=== PATIENT | female | born 2000 | race Caucasian/White ===

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

== ENCOUNTER 2018-05-08 18:59 | Inpatient (IN) | payer MEDICAID ==
[~2018-05-08] VITALS: Ht 152.4 cm; Wt 53.3 kg
[~2018-05-08 18:59] MED LIST: ACET325T33 PO; ACET500C5 PO; DICY10CA40 PO; DOCU-144 PO; FAMO-96 PO; HYDR-4011 PO; IBUP-1542 PO; IBUP-1561 PO; NITR-58 PO; ONDA4TAB14 PO; PENI500T PO; POLY17PO6 PO; RANI150T35 PO
[2018-05-08 19:21] VITALS: BP 119/63; PULSE 55; RESP 18
[2018-05-08 20:22] VITALS: Ht 152.4 cm; Wt 53.3 kg
[2018-05-08] MEDS ORDERED: LACTATED RINGER'S 1,000 ML IV SCH (20:30)
[2018-05-08] MEDS ORDERED: ACETAMINOPHEN 1000MG/100ML IV 100 ML IVPB ONE (20:30)
[2018-05-08] MEDS ORDERED: LACTATED RINGER'S 1,000 ML IV ONE (20:30)
[2018-05-08] MEDS ORDERED: TERBUTALINE 1 MG/ML INJ SC ONE ×2 (22:00→23:00)
[2018-05-08] MEDS ORDERED: SOD CHLORIDE 0.9% 1,000 ML IV SCH (22:00)
[2018-05-08] MEDS ORDERED: CEFTRIAXONE 1 GM INJ IVPB ONE (22:00)
[2018-05-08] MEDS ORDERED: CEFTRIAXONE 1 GM/50 ML (PMX) 50 ML IVPB ONE (22:00)
[2018-05-08] MEDS ORDERED: ACETAMINOPHEN 500 MG TAB PO STA (22:56)
[2018-05-08] MEDS: SOD CHLORIDE 0.9% 1,000 ML IV SCH (23:30)
--- NOTE | 2018-05-09 02:15 | TRIAGE ---
OB Triage Datetime Report Generated by CPN: 05/09/2018 02:14 Datetime: 05/09/2018 02:06 Monitor Mode: External Comments: US monitor removed, monitoring only Qshift NST Datetime: 05/09/2018 01:53 Resting Tone [place]: Relaxed Contraction Comments: maternal repositioning, TOCO tracing movement not contraction Datetime: 05/09/2018 01:30 Labor Evaluation Frequency: X4/HR Monitor Mode: External Duration (sec)2399: 40-80 Quality: Mild Resting Tone [place]: Relaxed Interventions: Side to Side Contraction Comments: Lots of uterine irritability noted Heart Rate FHR Baseline Rate: 120 Monitor Mode: External US Variability: Moderate 6-25 bpm Accelerations: 15X15 Decelerations: Variable Category: Category II Comments: [id number] NOTED, APPROPRIATE FOR GA Pain Assessment Pain Scale: 9 Pain Presence: Intermittent Pain Type: Cramping; Ache Pain Location: Abdomen; Right Flank Pain Relief Measures: Comfort Measures Pain Assessment Comments: pt still states her lower abdomen pain has not decreased Datetime: 05/09/2018 00:30 Labor Evaluation Frequency: OCCASIONAL Monitor Mode: External Duration (sec)2399: 40-50 Quality: Mild Pattern: Normal: <= 5 Contractions in 10 Minutes Resting Tone [place]: Relaxed Contraction Comments: OCCASIONAL CONTRACTIONS, MOSTLY UTERINE IRRIABILITY Heart Rate FHR Baseline Rate: 120 Monitor Mode: External US Variability: Moderate 6-25 bpm Accelerations: 15X15 Decelerations: None Category: Category I Comments: CAT I tracing, reactive NST Pain Assessment Pain Scale: 10 Pain Presence: Intermittent Pain Type: Contraction Pain Location: Abdomen Pain Relief Measures: Comfort Measures Datetime: 05/09/2018 00:05 Vaginal Exam Dilatation (cms): 0.0 Effacement (%): 0 Station: -4 Exam By: MVALENTINA RN Datetime: 05/08/2018 23:57 Time of Arrival: 05/08/2018 23:25 EGA: 32.4 Datetime: 05/08/2018 23:48 Monitor Mode: External Datetime: 05/08/2018 23:33 Assessment Type: Admission Assessment Maternal Assessment Level of Consciousness: Fully Conscious DTR's/Clonus: DTRs 2+; No Clonus Headache: Denies Blurred Vision: No Respiratory Effort: Unlabored; Regular Rhythm; Equal Expansion Breath Sounds, Left: Clear and Equal Breath Sounds, Right: Clear and Equal Nausea/Vomiting: Denies RUQ Epigastric Pain: Denies Lower Extremities Edema: None Degree: None Upper Extremities Edema: None Degree: None Facial Edema: None Temperature Route: Oral Fall Risk Assessment History of Falling: (0) No Secondary Diagnosis: (0) No Ambulatory Aid: (0) Bedrest/Nurse Assist IV Therapy: (20) Yes Gait: (0) Normal/Bedrest/Immobile Mental Status: (0) Oriented to Own Ability Fall Score: 20 Fall Risk Score Definition: No Risk: No action required Datetime: 05/08/2018 23:27 Stage of : Antepartum Comments: MONITOR ON, PT IN LR 12 Datetime: 05/08/2018 22:30 Monitor Mode: External US Datetime: 05/08/2018 21:58 Comments: LOSS OF CONTACT. PT MOVING IN BED Datetime: 05/08/2018 21:22 Time of Arrival: 05/08/2018 18:53 EGA: 32.4 Arrived By: Wheelchair Arrived From: Home Chief Complaint: ABDOMINAL PAIN, BACK PAIN, LEAKING FLUID Movement: Present Contractions: Irregular Time Contractions Began: 05/08/2018 17:00 Contractions: 20-30SEC Rupture of Membranes: Unsure Vaginal Bleeding: None Vaginal Discharge: Present Recent Sexual Intercouse: Denies Abdominal Trauma: Not Applicable Patient Complaints: Contractions; Back Pain; Nausea; Vomiting Additional Patient Complaints: N_V X2 Time Provider Notified: 05/08/2018 20:10 Provider Notified: DR. CISSE Initial Plan: EFM, CALL OB Datetime: 05/08/2018 19:25 Stage of : OB Triage Maternal Assessment Level of Consciousness: Fully Conscious DTR's/Clonus: DTRs 2+; No Clonus Headache: Denies Blurred Vision: No Respiratory Effort: Unlabored; Regular Rhythm; Equal Expansion Breath Sounds, Left: Clear and Equal Breath Sounds, Right: Clear and Equal Nausea/Vomiting: Denies RUQ Epigastric Pain: Denies Lower Extremities Edema: None Degree: None Upper Extremities Edema: None Degree: None Facial Edema: None Temperature Route: Oral Fall Risk Assessment History of Falling: (0) No Secondary Diagnosis: (0) No Ambulatory Aid: (0) Bedrest/Nurse Assist IV Therapy: (0) No Gait: (0) Normal/Bedrest/Immobile Mental Status: (0) Oriented to Own Ability Fall Score: 0 Fall Risk Score Definition: No Risk: No action required Pain Assessment Pain Scale: 8 Pain Presence: Constant Pain Type: Cramping; Dull; Contraction; Pressure Pain Location: Abdomen; Back; Perineum Pain Goal: 0 Pain Relief Measures: Comfort Measures Datetime: 05/08/2018 19:21 Stage of : OB Triage Datetime: 05/08/2018 19:18 Monitor Mode: External Contraction Comments: APPLIED Monitor Mode: External US Comments: APPLIED
[2018-05-09] MEDS: ACETAMINOPHEN 325 MG TAB PO PRN ×2 (07:20→14:14)
[2018-05-09] MEDS: PRENATAL VITAMIN PO SCH (09:00)
--- NOTE | 2018-05-09 10:49 | HP ---
Date/Time of Note Date/Time of Note DATE: 05/09/18 TIME: 10:44 OB - History Hx of Present Free Text/Dictation May 08, 2018 : 1 Para: 0 Therapeutic : 0 Care: Other ( [facility], [facility]) Abnormal Ultrasound Findings: 17-year-old with IUP at 32 weeks and 4 days with [facility] on [facility] Garcia presented with complaint of abdominal pain suprapubic pain and right and left flank pain more in the right side than left flank and low back pain.. She reports some urinary symptoms. She denies any leaking of fluid, vaginal bleeding decreased movements. Reports feeling crampy like contractions. Denies any fever or chills. Reports some nausea. UA consistent with UTI records not available. Denies any complication during her course. Patient appears to be in distress due to pain Past Family/Social History * Past Medical, Surgical, Family and Obstetric Histories reviewed from chart. OB Admission Exam Vital Signs Vital Signs Vital Signs Date Temp Pulse Resp B/P (MAP) Pulse Ox O2 O2 Flow FiO2 Time Delivery Rate 05/08/18 98.4 55 18 119/63 Room Air 19:21 (81) Physical Exam HEENT: WNL Heart Rate: 130's Accelerations: Accelerations Present Decelerations: No Decelerations Varibility: Moderate Contractions on Admission: < 5 Minutes Apart Intensity: Moderate Last 72 hourBlood Glucose PROCEDURE: Biophysical profile. CLINICAL INDICATION: Pelvic pain. TECHNIQUE: Multiple sonographic images of the pelvis were obtained with transabdominal technique. Endovaginal evaluation of the cervix was also performed. COMPARISON: 12/17/2017. FINDINGS: There is a single living intrauterine gestation with the fetus in a breech position with the head to the maternal left. The placenta is anterior in location, grade II. heart tones of 157 beats per minute are identified. There is normal amniotic fluid volume with an BRANDI of 16.3 cm. The cervix is closed measuring 3.1 cm. breathing movements = 2 Gross body movements = 2 tone = 2 Qualitative AFV = 2 IMPRESSION: Biophysical profile 8 out of 8. PROCEDURE: US OB placenta limited CLINICAL INDICATION: . labor, pain TECHNIQUE: Multiple transabdominal sonographic images of the pelvis and gravid uterus were obtained. The images were reviewed on a PACS workstation. COMPARISON: US PELVIS 05/08/2018 FINDINGS: Cervix: Not delineated Gestation: Single live intrauterine gestation. Cardiac activity: 154 beats per minute. Presentation: Breech Placenta: Location: Anterior. Appearance: No abruption. There is no evidence of placenta previa on study performed earlier the same day. Amniotic Fluid: Not measured. Gestational Age: LMP estimated gestational age: 32 weeks 4 days IMPRESSION: 1. Single live intrauterine gestation. 2. No abnormality identified. Please see above. Last 72 hours Lab Results CBC & BMP 05/08/18 21:09 OB Assessment/Plan Other Assessment: IUP at 32 weeks adn 4 days Lower abdominal pain, suprapubic pain. Low back pain and flank pain with nausea and urine analysis consistent with UTI, positive CVA tenderness Cannot rule out pyelonephritis Cervical length within normal limits contractions likely related to UTI and pyelo- Patient will be admitted for treatment for pyelonephritis We will continue to monitor closely Started on Rocephin urine to be sent for culture and sensitivity Adequate high IV hydration will continue monitor closely. JESUS CISSE MD May 09, 2018 10:49
[2018-05-09] MEDS ORDERED: TERBUTALINE 1 MG/ML INJ SC ONE (11:00)
[2018-05-09] MEDS: SOD CHLORIDE 0.9% 1,000 ML IV SCH ×3 (11:10→21:52)
[2018-05-09] MEDS: NIFEdipine 10 MG CAP PO SCH ×2 (14:20→20:18)
[2018-05-09] MEDS: CEFTRIAXONE 1 GM/50 ML (PMX) 50 ML IVPB SCH (21:52)
[2018-05-10] MEDS: SOD CHLORIDE 0.9% 1,000 ML IV SCH ×4 (01:36→22:06)
[2018-05-10] MEDS: NIFEdipine 10 MG CAP PO SCH ×5 (02:37→23:52)
[2018-05-10] MEDS: PRENATAL VITAMIN PO SCH (09:56)
[2018-05-10] MEDS: ACETAMINOPHEN 325 MG TAB PO PRN (12:39)
[2018-05-10] MEDS: CEFTRIAXONE 1 GM/50 ML (PMX) 50 ML IVPB SCH (22:05)
--- NOTE | 2018-05-10 23:45 | PN ---
Date/Time of Note Date/Time of Note DATE: 05/10/18 TIME: 23:40 OB Subjective Subjective Subjective Patient seen and examined. She states good movement. She denies nausea, vomiting, shortness of breath, chest pain, abdominal or flank pain, headache, visual changes, vaginal bleeding or LOF. OB Objective Objective Objective Vital Signs Date Temp Pulse Resp B/P (MAP) Pulse Ox O2 O2 Flow FiO2 Time Delivery Rate 05/09/18 97.9 20:15 05/08/18 55 18 119/63 Room Air 19:21 (81) General: Patient appears well, alert and oriented, NAD, appropriate mood and affect ABD: gravid, soft, non-tender. Back: No CVA tenderness (B/L) LE: Mild edema. No clubbing, cyanosis, edema, thigh or calf tenderness bilaterally FHT: 135 bpm , moderate variability with acceleration, no deceleration-category I Contractions: None OB Assessment/Plan Other plan: 17-year-old 1 with single intrauterine at 32+ weeks with urinary tract infection versus pyelonephritis. heart rate is category 1. She has no uterine contractions. She is currently on Ceftriaxone. Urinalysis revealed 316 white PCP with positive for leukocyte esterase. Urine culture shows Ester with gram-positive cocci. Continue current management. Repeat urinalysis ordered. TRACI BELL May 10, 2018 23:45
[2018-05-11] MEDS: SOD CHLORIDE 0.9% 1,000 ML IV SCH (05:30)
[2018-05-11] MEDS: NIFEdipine 10 MG CAP PO SCH ×2 (05:33→11:39)
[2018-05-11] MEDS ORDERED: FERROUS SULFATE (EC) 325 MG TAB PO ONE (09:24)
[2018-05-11] MEDS ORDERED: FERROUS GLUCONATE (EC) 325 MG TAB PO SCH (09:30)
[2018-05-11] MEDS: PRENATAL VITAMIN PO SCH (09:51)
[2018-05-11] MEDS ORDERED: FERROUS SULFATE (EC) 325 MG TAB PO SCH (11:00)
--- NOTE | 2018-05-11 11:56 | PN ---
Date/Time of Note Date/Time of Note DATE: 05/11/18 TIME: 11:52 OB Subjective Subjective Subjective Admission date 05/09/2018 Patient seen and examined. She states good movement. She denies nausea, vomiting, shortness of breath, chest pain, abdominal or flank pain, headache, visual changes, vaginal bleeding or LOF. OB Objective Objective Objective Vital Signs Date Temp Pulse Resp B/P (MAP) Pulse Ox O2 O2 Flow FiO2 Time Delivery Rate 05/09/18 97.9 20:15 05/08/18 55 18 119/63 Room Air 19:21 (81) General: Patient appears well, alert and oriented, NAD, appropriate mood and affect ABD: gravid, soft, non-tender. Back: No CVA tenderness (B/L) LE: Mild edema. No clubbing, cyanosis, edema, thigh or calf tenderness bilaterally FHT: 140 bpm , moderate variability with acceleration, no deceleration-category I Contractions: None Laboratory Tests Test 05/10/18 22:10 Urine Color STRAW Urine Clarity SLIGHTLY CLOUDY A Urine pH 6.0 Urine Specific [place] 1.004 Urine Ketones NEGATIVE Urine Nitrite NEGATIVE Urine Bilirubin NEGATIVE Urine Urobilinogen NEGATIVE Urine Leukocyte Esterase 3+ H Urine Microscopic RBC 2 Urine Microscopic WBC 29 H Urine Squamous Epithelial Cells FEW Urine Bacteria FEW A Urine Hemoglobin NEGATIVE Urine Glucose NEGATIVE Urine Total Protein NEGATIVE Urine culture: organism 1 ANKIT ALBICANS COLONY COUNT <10,000 CFU/ml Organism 2 MIXED GRAM POSITIVE ORGANISMS COLONY COUNT 20,000 - 30,000 CFU/ml OB Assessment/Plan Other plan: 17-year-old 1 with single intrauterine at 32 6/7 weeks with urinary tract infection versus pyelonephritis. heart rate is category 1. She has no uterine contractions. She is currently on Ceftriaxone. Urinalysis repeated as noted above, still is positive for white blood cell and the leukocyte Estrace. Urine culture shows Ankit and mixed gram-positive organisms ([id number]). Continue current management. Repeat urinalysis tonight. TRACI BELL May 11, 2018 11:56
== END 2018-05-11 16:40 | disposition home or self-care (01) | DRG 833 ==
LOC: OBT 18:59 → L-D 19:00 → OBT 22:52 → PP1 05-10 14:01
PROVIDERS: ADMIT Obstetrics & Gynecology; ATTEND Obstetrics & Gynecology
DX: O23.43 Unspecified infection of urinary tract in pregnancy, third trimester (principal); Z3A.32 32 weeks gestation of pregnancy
CPT/HCPCS: 36415; 76775; 76815; 76817; 76818; 81001; 81003; 82731; 84112; 85025; 87086; 96360; 96361; 96368; 96372; A4310; G0463; J0131; J0696; J3105; J7030; J7120

== ENCOUNTER 2018-05-29 19:28 | Outpatient (CLI) | payer MEDICAID ==
[~2018-05-29] VITALS: Ht 152.4 cm; Wt 52.2 kg
[~2018-05-29 19:28] MED LIST changes: -ACET325T33 PO; -DICY10CA40 PO; -DOCU-144 PO; -HYDR-4011 PO; -IBUP-1542 PO; -IBUP-1561 PO; -NITR-58 PO; -ONDA4TAB14 PO; -PENI500T PO; -POLY17PO6 PO; -RANI150T35 PO
[2018-05-29 20:02] VITALS: Ht 152.4 cm; Wt 52.2 kg
[2018-05-29 20:03] VITALS: BP 107/67; PULSE 49; RESP 17
--- NOTE | 2018-05-30 07:43 | PN ---
Triage Information Date/Time May 29, 2018 Reason for visit: Complaint of suprapubic and lower abdominal pain and groin pain. Denies any leaking of fluid, vaginal bleeding decreased movement. Weeks of Gestation 35 weeks and 4 days /Para 1 para 0 Diabetes: none Hypertention: none Additional information 17-year-old with IUP at 35 weeks and 4 days and history of pyelonephritis and current status post admission couple weeks ago in this facility here today complaining of suprapubic and lower abdominal pain and groin pain and cramps. She denies any leaking of fluid, vaginal bleeding decreased movement. Patient has not been taking prophylactic antibiotics. Noted to have positive urinalysis for UTI. Antepartum course was complicated by anemia, iron was given. Patient was asymptomatic. Also size less than dates noted in problem list. EFW: 45 percentile and consistent with dates and today's ultrasound Breech presentation noted incidentally during ultrasound examination Objective Vital Signs Date Temp Pulse Resp B/P (MAP) Pulse Ox O2 O2 Flow FiO2 Time Delivery Rate 05/29/18 97.9 49 17 107/67 Room Air 20:03 (80) Heart Rate: 130's Heart Rate Comments Category 1 Contractions: None Exam General appearance: Alert and oriented x4 appears to be mild distress Abdomen: Soft, gravid, fundal height consider gestational age, there is suprapubic tenderness, no CVA tenderness NST: Category 1 and reactive BPP: 8/8 Estimated weight: 45 percentile Breech presentation noted an ultrasound Results/Medications Results 24 hrs Laboratory Tests Test 05/29/18 21:00 Urine Color YELLOW Urine Clarity SLIGHTLY CLOUDY A Urine pH 6.0 Urine Specific Elsie 1.010 Urine Ketones NEGATIVE Urine Nitrite NEGATIVE Urine Bilirubin NEGATIVE Urine Urobilinogen NEGATIVE Urine Leukocyte Esterase 3+ H Urine Microscopic RBC 14 H Urine Microscopic WBC 11 H Urine Squamous Epithelial Cells MODERATE Urine Bacteria FEW A Urine Hemoglobin 1+ H Urine Glucose NEGATIVE Urine Total Protein NEGATIVE Imaging Results PROCEDURE: Biophysical profile. CLINICAL INDICATION: Pelvic pain. TECHNIQUE: Multiple sonographic images of the pelvis were obtained with transabdominal technique. COMPARISON: 05/09/2018. FINDINGS: There is a single living intrauterine gestation with the fetus in a breech position with the head to the maternal right. The placenta is anterior in location, grade II. heart tones of 141 beats per minute are identified. There is normal amniotic fluid volume with an BRANDI of 15.4 cm. breathing movements = 2 Gross body movements = 2 tone = 2 Qualitative AFV = 2 IMPRESSION: Biophysical profile 8 out of 8. PROCEDURE: US OB. CLINICAL INDICATION: labor. TECHNIQUE: Multiple sonographic images of the pelvis were obtained. Transabdominal imaging only was performed. The images were reviewed on a PACS workstation. COMPARISON: No prior studies are available for comparison. FINDINGS: There is a single viable intrauterine gestation. Cardiac activity is present with 141 beats per minute. There is a breech presentation, head maternal right. Measurements were made in order to determine age. The results are as follows: BPD = 8.31 cm HC = 31.71 cm AC = 32.16 cm FL = 6.89 cm Estimated gestational age of approximately 35 weeks 1 day. The estimated date of delivery is 07/02/2018. The EFW = 2710 g. EFW percentile: 45% The placenta is anterior, grade II. There is no evidence for an abruption or placenta previa. IMPRESSION: Single live intrauterine gestation of approximately 35 weeks 1 day, based on ultrasound measurements. The estimated date of delivery is 07/02/2018. EFW percentile: 45%. RPTAT: HTAR Disposition: Discharge Assessment/Plan IUP at 35 weeks and 4 days History of pyelonephritis, status post treatment. Patient has not been on prophylactic antibiotic treatment Lower abdominal pain, suprapubic pain and urine analysis suspicious for UTI No evidence of pyelonephritis currently Patient was advised to start again Keflex 4 times daily for 7 days and to continue after finishing course of treatment daily for the course of until 6 weeks with adequate p.o. hydration Growth appropriate for gestational age. Strict labor precautions, kick count discussed with the patient and follow-up within 48 hours with primary OB office discussed Patient verbalized understanding. All questions were answered to patient's best satisfaction risk of not taking prophylactic treatment including risk of Complication of including delivery, pyelonephritis, sepsis, maternal complications including but not limited to admission to NICU, with maternal morbidity and mortality discussed with patient. JESUS CISSE MD May 30, 2018 07:43
[2018-06-22] MEDS ORDERED: PREN1TAB13 PO (09:07)
== END 2018-05-30 | disposition home or self-care (01) ==
LOC: OBT 19:28 → L-D 19:29 → OBT 05-30
PROVIDERS: ATTEND Obstetrics & Gynecology
DX: O26.893 Other specified pregnancy related conditions, third trimester (principal); R10.30 Lower abdominal pain, unspecified; Z3A.35 35 weeks gestation of pregnancy
CPT/HCPCS: 76815; 76818; 81001; Z7500; G0463

== ENCOUNTER 2018-10-04 15:16 | Emergency (ER) | payer MEDICAID ==
[~2018-10-04] VITALS: Ht 152.4 cm; Wt 47.2 kg
[~2018-10-04 15:16] MED LIST changes: -ACET500C5 PO; -FAMO-96 PO; +PREN1TAB13 PO
[2018-10-04 15:53] VITALS: Ht 152.4 cm; Wt 47.2 kg
--- NOTE | 2018-10-04 16:07 | EN ---
Date/Time of Note Date/Time of Note DATE: 10/04/18 TIME: 16:05 ER Progress Note Quick RME note: Medical screening exam was initiated and lab/imaging studies were ordered. Patient will be seen in ED 2 by another provider. HPI: Patient is a 17-year-old female presents the ER for concerns of a headache for the last 3 days. Patient describes the pain to be throughout her head. Patient is to be taking lfsa-eah-kzrefqh medications with minimal alleviation of symptoms. Patient reports associated nausea. Patient denies any fevers or chills. Physical exam: GENERAL: Well-developed, well-nourished female. Appears in no acute distress. Speaking in full sentences. HEAD: Normocephalic, atraumatic. EYES: Pupils are equally reactive bilaterally. EOMs grossly intact. No conjunctival erythema. NECK: Supple. No meningismus. Normal range of motion of the neck. EXTREMITIES: Equal pulses bilaterally. No peripheral clubbing, cyanosis or edema. No unilateral leg swelling. NEUROLOGIC: Alert and oriented. Moving all four extremities without any difficulty. Normal speech. Steady gait. Orders placed: AALIYAH Harrison PA-C October 04, 2018 16:07
[2018-10-04] MEDS ORDERED: METOCLOPRAMIDE 10 MG INJ IV STA (16:21)
[2018-10-04] MEDS ORDERED: SOD CHLORIDE 0.9% 1,000 ML IV STA (16:21)
[2018-10-04] MEDS ORDERED: DIPHENHYDRAMINE 50 MG INJ IV STA (16:21)
[2018-10-04] MEDS ORDERED: KETOROLAC 30 MG INJ IV STA (16:21)
[2018-10-04] MEDS ORDERED: ONDA4TAB14 PO (16:26)
[2018-10-04] MEDS ORDERED: BUTA1CAP38 PO (16:26)
[2018-10-04] MEDS ORDERED: BEN25 PO (16:26)
--- NOTE | 2018-10-04 16:32 | ERD ---
ER Documentation Chief Complaint Chief Complaint HEADACHE X3 DAYS HPI 17-year-old healthy female with past medical history of chronic migraine headache type headache who presents with complaint of her typical migraine headache over the past 3 days. Has had several episodes of nausea and vomiting over the past couple of days unable to consistently keep down p.o. She otherwise denies chest pain, shortness of breath, fever, chills, URI type s ymptoms, sinus pressure, vision changes, dizziness or any other concerning symptoms. She otherwise is in good health but does report bouts of severe migraines requiring care in the emergency room. ROS All systems reviewed and are negative except as per history of present illness. Medications Home Meds Active Scripts Ucgxuvxheu-Buwtxpylqwrdg-Ggtoqcmh* (Fioricet*) 50-300-40 Mg Capsule, 1 CAP PO Q4H PRN for HEADACHE, #20 CAP Prov:PAMELA RUSS-C 10/04/18 Diphenhydramine Hcl* (Benadryl*) 25 Mg Cap, 25 MG PO Q6, #14 CAP Prov:PAMELA RUSS-C 10/04/18 Ondansetron (Ondansetron Odt) 4 Mg Tab.rapdis, 4 MG PO Q6H PRN for NAUSEA AND/OR VOMITING, #10 TAB Prov:PAMELA RUSS-C 10/04/18 Reported Medications Pnv95/Ferrous Fumarate/FA ( Vitamins Tablet) 1 Each Tablet, 1 EACH PO DAILY, TAB 06/22/18 Allergies Allergies: Coded Allergies: Sulfa (Sulfonamide Antibiotics) (Verified Allergy, Unknown, rash, 05/08/18) PMhx/Soc History of Surgery: No Anesthesia Reaction: No Hx Neurological Disorder: No Hx Respiratory Disorders: No Hx Cardiac Disorders: No Hx Psychiatric Problems: No Hx Miscellaneous Medical Probl: No Hx Alcohol Use: No Hx Substance Use: No Hx Tobacco Use: No FmHx Family History: No diabetes, No coronary disease, No other Physical Exam Vitals Vital Signs Date Temp Pulse Resp B/P (MAP) Pulse Ox O2 O2 Flow FiO2 Time Delivery Rate 10/04/18 98.0 82 17 102/57 97 Room Air 19:05 (72) 10/04/18 99.2 53 16 121/66 100 15:53 (84) Physical Exam I have reviewed the triage vital signs. Const: Well nourished, well developed, appears stated age Eyes: PERRL, no conjunctival injection HENT: NCAT, Neck supple without meningismus CV: RRR, Warm, well-perfused extremities RESP: CTAB, Unlabored respiratory effort GI: soft, non-tender, non-distended, no masses MSK: No gross deformities appreciated Skin: Warm, dry. No rashes Neuro: grossly non focal Psych: Appropriate mood and affect. Results 24 hrs Laboratory Tests Test 10/04/18 16:50 POC Beta HCG, Qualitative NEGATIVE Current Medications Medications Dose Sig/Francisco Start Time Status Last (Trade) Ordered Route PRN Stop Time Admin Dose Reason Admin Sodium 1,000 ml @ Q1H STAT 10/04/18 DC 10/04/18 Chloride 1,000 mls/hr IV 16:21 17:02 10/04/18 17:20 10 mg ONCE STAT 10/04/18 DC 10/04/18 Metoclopramid IV 16:21 17:01 e HCl 10/04/18 16:23 (Reglan) Ketorolac 30 mg ONCE STAT 10/04/18 DC 10/04/18 Tromethamine IV 16:21 17:02 (Toradol) 10/04/18 16:23 25 mg ONCE STAT 10/04/18 DC 10/04/18 Diphenhydrami IV 16:21 17:02 ne HCl 10/04/18 16:23 (Benadryl) Procedures/MDM This patient presents with a headache most consistent with a grain type headache with . Differential diagnosis includes migraine versus tension type headache. No headache red flags. Neurologic exam without evidence of meningismus, focal neurologic findings. Presentation not consistent with acute intracranial bleed to include SAH (lack of risk factors, headache history). Presentation not consistent with acute MOTEL CLERK infection to include meningitis or brain abscess, Temporal arteritis unlikely, as is acute angle closure glaucoma given history and physical findings. Presentation not consistent with other acute, emergent causes of headache at this time. Plan to treat symptomatically with pain medication. No indication for imaging/LP at this time. Given focal symptoms and lack of red flag symptoms no CT of head was warranted given patient's history of chronic migraine type headache. Plan: Headache cocktail including Toradol, Benadryl, Reglan, intravenous fluids We will discharge with Fioricet, Benadryl, Zofran Strict return precautions explained patient advised to follow-up with PMD serial reassessment: Patient with reported improvement in symptoms post treatment DISPOSITION PLAN: We discussed follow up with the patient's primary care doctor within 24 to 48 hours. Patient counseled regarding my diagnostic impression and care plan. Prior to discharge all questions answered. Pt agrees with treatment plan and unders tands strict return precautions. Precautionary instructions provided including instructions to return to the ER if not improving or for any worsening or changing symptoms or concerns. Disclaimer: Inadvertent spelling and grammatical errors are likely due to EHR/dictation software use and do not reflect on the overall quality of patient care. Also, please note that the electronic time recorded on this note does not necessarily reflect the actual time of the patient encounter. Departure Diagnosis: Primary Impression: Headache Condition: Stable Patient Instructions: Self-Care for Headaches, Migraine Headache: Stages and Treatment Referrals: [facility] YOU HAVE RECEIVED A MEDICAL SCREENING EXAM AND THE RESULTS INDICATE THAT YOU DO NOT HAVE A CONDITION THAT REQUIRES URGENT TREATMENT IN THE EMERGENCY DEPARTMENT. FURTHER EVALUATION AND TREATMENT OF YOUR CONDITION CAN WAIT UNTIL YOU ARE SEEN IN YOUR DOCTORS OFFICE WITHIN THE NEXT 1-2 DAYS. IT IS YOUR RESPONSIBILITY TO MAKE AN APPOINTMENT FOR FOLOW-UP CARE. IF YOU HAVE A PRIMARY DOCTOR --you should call your primary doctor and schedule an appointment IF YOU DO NOT HAVE A PRIMARY DOCTOR YOU CAN CALL OUR PHYSICIAN REFERRAL HOTLINE AT IF YOU CAN NOT AFFORD TO SEE A PHYSICIAN YOU CAN CHOSE FROM THE FOLLOWING [facility] [address] [facility]. [facility] [address] [facility] [facility] [address] [facility] [facility] [address] [facility]. [facility] [place] [address] [facility]. [facility]. [address] Additional Instructions: Call your primary care doctor TOMORROW for an appointment during the next 2-3 days.See the doctor sooner or return here if your condition worsens before your appointment time. PAMELA RUSS PA-C October 04, 2018 16:32
[2018-10-04 19:05] VITALS: BP 102/57; PULSE 82; RESP 17
== END 2018-10-04 19:05 | disposition home or self-care (01) ==
LOC: FTE 15:16
DX: R51 Headache (principal)
CPT/HCPCS: 81025; J1200; J1885; J2765; J7030; 36415; 96374; 96375

== ENCOUNTER 2018-11-03 11:19 | Emergency (ER) | payer MEDICAID ==
[~2018-11-03] VITALS: Ht 160 cm; Wt 48.8 kg
[~2018-11-03 11:19] MED LIST changes: +BEN25 PO; +BUTA1CAP38 PO; +ONDA4TAB14 PO
[2018-11-03 11:22] VITALS: Ht 160 cm; Wt 48.8 kg
[2018-11-03] MEDS ORDERED: SOD CHLORIDE 0.9% 1,000 ML IV STA (12:13)
[2018-11-03] MEDS ORDERED: ONDANSETRON 4 MG INJ IV STA (12:13)
[2018-11-03] MEDS ORDERED: DICYCLOMINE 20 MG INJ IM ONE (12:30)
[2018-11-03] MEDS ORDERED: ONDA4TAB14 PO (13:26)
[2018-11-03] MEDS ORDERED: IBUP-1542 PO (13:27)
--- NOTE | 2018-11-03 13:27 | ERD ---
ER Documentation Chief Complaint Chief Complaint abd pain with N/V x 3 days HPI 17-year-old female reporting to the ED for nausea& vomiting x3 days. She reports epigastric abdominal pain also that does not radiate anywhere. She denies any fevers or chills. She states that her abdominal pain is 10 out of 10 intensity. She denies any sore throat, nasal congestion, diarrhea, constipation, any recent travel, any sick contacts. She states that she has not taken any medication to help alleviate her symptoms yet. ROS All systems reviewed and are negative except as per history of present illness. Medications Home Meds Active Scripts Ibuprofen* (Motrin*) 600 Mg Tab, 600 MG PO Q6, #30 TAB Prov:MATAVOSIALESSANDRA MONDRAGON-C 11/03/18 Ondansetron (Ondansetron Odt) 4 Mg Tab.rapdis, 4 MG PO Q6H PRN for NAUSEA AND/OR VOMITING, #10 TAB Prov:MATAVOSIANALESSANDRAC 11/03/18 Rfpwlpuzhv-Nrpwcuorsyaac-Uqewrjzw* (Fioricet*) 50-300-40 Mg Capsule, 1 CAP PO Q4H PRN for HEADACHE, #20 CAP Prov:JEPAMELA SHIPLEY-C 10/04/18 Diphenhydramine Hcl* (Benadryl*) 25 Mg Cap, 25 MG PO Q6, #14 CAP Prov:PAMELA RUSSC 10/04/18 Ondansetron (Ondansetron Odt) 4 Mg Tab.rapdis, 4 MG PO Q6H PRN for NAUSEA AND/OR VOMITING, #10 TAB Prov:PAMELA RUSSC 10/04/18 Reported Medications Pnv95/Ferrous Fumarate/FA ( Vitamins Tablet) 1 Each Tablet, 1 EACH PO DAILY, TAB 06/22/18 Allergies Allergies: Coded Allergies: Sulfa (Sulfonamide Antibiotics) (Verified Allergy, Unknown, rash, 05/08/18) PMhx/Soc Medical and Surgical Hx: pt denies Medical Hx History of Surgery: No Anesthesia Reaction: No Hx Neurological Disorder: No Hx Respiratory Disorders: No Hx Cardiac Disorders: No Hx Psychiatric Problems: No Hx Miscellaneous Medical Probl: No Hx Alcohol Use: No Hx Substance Use: No Hx Tobacco Use: No Smoking Status: Never smoker FmHx Family History: No diabetes Physical Exam Vitals Vital Signs Date Temp Pulse Resp B/P (MAP) Pulse Ox O2 O2 Flow FiO2 Time Delivery Rate 11/03/18 98.3 53 18 103/62 99 Room Air 13:59 (76) 11/03/18 97.9 94 18 123/60 99 11:22 (81) Physical Exam Const: No acute distress Head: Atraumatic Eyes: Normal Conjunctiva ENT: Normal External Ears, Nose and Mouth. Neck: Full range of motion. Resp: Clear to auscultation bilaterally Cardio: Regular rate and rhythm, Abd: Slight tenderness to epigastric region, non distended. Normal bowel sounds. No rebounding or guarding. No peritoneal signs Skin: No petechiae or rashes Back: No midline or flank tenderness Ext: No cyanosis, or edema Neur: Awake and alert Psych: Normal Mood and Affect Results 24 hrs Laboratory Tests Test 11/03/18 12:38 POC Beta HCG, Qualitative NEGATIVE Current Medications Medications Dose Sig/Francisco Start Time Status Last (Trade) Ordered Route PRN Stop Time Admin Dose Reason Admin Sodium 1,000 ml @ Q1H STAT 11/03/18 DC 11/03/18 Chloride 1,000 mls/hr IV 12:13 12:40 11/03/18 13:12 Ondansetron 4 mg ONCE STAT 11/03/18 DC 11/03/18 HCl (Zofran IV 12:13 12:40 Inj) 11/03/18 12:15 Dicyclomine 20 mg ONCE ONCE 11/03/18 DC 11/03/18 HCl IM 12:30 12:41 (Bentyl) 11/03/18 12:31 Procedures/MDM ED COURSE: The patient was stable throughout ED course. I kept the patient informed of laboratory and diagnostic imaging results throughout the ED course. MEDICATIONS GIVEN: Bentyl, IV fluids, Zofran Patient tolerated medication well with no adverse reactions. Patient reported improvement in pain. MEDICAL DECISION MAKING: Patient is a 17-year-old female complaining of nausea vomiting x3 days. On physical exam her epigastric region showed slight tenderness. Reports that she has not been able to keep any solids or liquids down and feels dehydrated. Patient was given IV fluids, Bentyl, Zofran during the ED stay without any adverse side effects. Patient stated that she felt great afterwards. I have low suspicion for other emergent processess such as coronary syndrome, AAA, mesenteric ischemia, lower lobe pneumonia, DKA, bowel perforation, olimpia cystitis, choledocholithiasis, ascending cholangitis, hepatic abscess, pancreatitis, PUD, gastritis, GERD, splenic rupture, diverticulitis, UTI, pyelonephritis, nephrolithiasis, appendicitis, constipation. Patient was discharged with Zofran and Motrin and told to follow-up with her primary care provider. Vital signs were reviewed. Patient is afebrile. Patient was not hypoxic. Patient was hemodynamically stable. PRESCRIPTION: Zofran, Motrin DISCHARGE: At this time, patient is stable for discharge and outpatient management. I have instructed the patient to follow-up with his/her primary care physician in 1-2 days. I have discussed with the patient the possibility of needing to see a specialist for further workup and imaging studies if symptoms persist. I have instructed the patient to promptly return to the ER for any new or worsening symptoms including increased pain, fever, nausea, vomiting, weakness or LOC. The patient and/or family expressed understanding of and agreement with this plan. All questions were answered. Home care instructions were provided. Disclaimer: Inadvertent spelling and grammatical errors are likely due to EHR/dictation software use and do not reflect on the overall quality of patient care. Also, please note that the electronic time recorded on this note does not necessarily reflect the actual time of the patient encounter. Departure Diagnosis: Primary Impression: Nausea and vomiting Vomiting type: unspecified Vomiting Intractability: unspecified Qualified Codes: R11.2 - Nausea with vomiting, unspecified Condition: Fair Patient Instructions: Nausea and Vomiting-Adult Referrals: [facility] YOU HAVE RECEIVED A MEDICAL SCREENING EXAM AND THE RESULTS INDICATE THAT YOU DO NOT HAVE A CONDITION THAT REQUIRES URGENT TREATMENT IN THE EMERGENCY DEPARTMENT. FURTHER EVALUATION AND TREATMENT OF YOUR CONDITION CAN WAIT UNTIL YOU ARE SEEN IN YOUR DOCTORS OFFICE WITHIN THE NEXT 1-2 DAYS. IT IS YOUR RESPONSIBILITY TO MAKE AN APPOINTMENT FOR FOLOW-UP CARE. IF YOU HAVE A PRIMARY DOCTOR --you should call your primary doctor and schedule an appointment IF YOU DO NOT HAVE A PRIMARY DOCTOR YOU CAN CALL OUR PHYSICIAN REFERRAL HOTLINE AT IF YOU CAN NOT AFFORD TO SEE A PHYSICIAN YOU CAN CHOSE FROM THE FOLLOWING [facility] [address] [facility]. [facility] [address] [facility] [address] [facility] [address] [facility] [address] [facility]. [facility]. [address] [facility]. [facility] YOU HAVE RECEIVED A MEDICAL SCREENING EXAM AND THE RESULTS INDICATE THAT YOU DO NOT HAVE A CONDITION THAT REQUIRES URGENT TREATMENT IN THE EMERGENCY DEPARTMENT. FURTHER EVALUATION AND TREATMENT OF YOUR CONDITION CAN WAIT UNTIL YOU ARE SEEN IN YOUR DOCTORS OFFICE WITHIN THE NEXT 1-2 DAYS. IT IS YOUR RESPONSIBILITY TO MAKE AN APPOINTMENT FOR FOLOW-UP CARE. IF YOU HAVE A PRIMARY DOCTOR --you should call your primary doctor and schedule and appointment IF YOU DO NOT HAVE A PRIMARY DOCTOR YOU CAN CALL OUR PHYSICIAN REFERRAL HOTLINE AT . IF YOU CAN NOT AFFORD TO SEE A PHYSICIAN YOU CAN CHOSE FROM THE FOLLOWING [facility] INSTITUTIONS: [facility] [address] [place] [address] [facility] [address] [place] [address] [facility] [address] [place] [address] Additional Instructions: Call your primary care doctor TOMORROW for an appointment during the next 1-2 days.See the doctor sooner or return here if your condition worsens before your appointment time. ALESSANDRA JEWELL PA-C Nov 03, 2018 13:27
[2018-11-03 13:59] VITALS: BP 103/62; PULSE 53; RESP 18
== END 2018-11-03 14:00 | disposition home or self-care (01) ==
LOC: FTE 11:19
DX: R11.2 Nausea with vomiting, unspecified (principal)
CPT/HCPCS: 81025; 96361; 96372; 96374; J0500; J2405; J7030; Z7502

== ENCOUNTER 2018-12-01 13:46 | Emergency (ER) | payer SELFPAY ==
[~2018-12-01] VITALS: Ht 152.4 cm; Wt 50.4 kg
[~2018-12-01 13:46] MED LIST changes: +IBUP-1542 PO
[2018-12-01 13:49] VITALS: BP 114/56; PULSE 83; RESP 17; Ht 152.4 cm; Wt 50.4 kg
== END 2018-12-01 16:46 | disposition left against medical advice (07) ==
LOC: FTE 13:46
DX: Z53.21 Procedure and treatment not carried out due to patient leaving prior to being seen by health care provider (principal)